=== PATIENT | female | born 1990 | race Caucasian/White ===

== ENCOUNTER 2020-11-10 20:14 | Inpatient (IN) | payer MEDICAID ==
[2020-11-10] MEDS ORDERED: Sodium Chloride 0.9% 10 ML Syringe FLUSH PRN (20:43)
[2020-11-10] MEDS ORDERED: Nalbuphine 10 MG/1 ML Vial IVPUSH PRN (20:43)
[2020-11-10] MEDS ORDERED: Butorphanol 1 MG/ML SDV IVPUSH PRN (20:43)
[2020-11-10] MEDS ORDERED: Lidocaine 1% 50 ML MDV INJECT PRN (20:43)
[2020-11-10] MEDS ORDERED: Sodium Chloride 0.9% 2.5 ML Syringe FLUSH PRN (20:43)
[2020-11-10] MEDS ORDERED: Water For Irrigation,Sterile 1,000 ML Container IRR PRN (20:43)
[2020-11-10] MEDS ORDERED: Misoprostol 200 MCG Tab PO PRN (20:43)
[2020-11-10] MEDS ORDERED: Methylergonovine 0.2 MG/1 ML Amp IM PRN (20:43)
[2020-11-10] MEDS ORDERED: Sodium Chloride 0.9% 10 ML SDV IV PRN (20:43)
[2020-11-10] MEDS ORDERED: Carboprost Tromethamine 250 MCG/1 ML Amp IM PRN (20:43)
[2020-11-10] MEDS ORDERED: Tranexamic Acid 1,000 MG in Sodium Chloride 0.9% 100 ML IV PRN (20:43)
[2020-11-10] MEDS ORDERED: Oxytocin/0.9 % Sodium Chloride 30 UNIT/500 ML BAG IV SCH (20:45)
[2020-11-11] MEDS ORDERED: Oxytocin/0.9 % Sodium Chloride 30 UNIT/500 ML BAG IV SCH (00:30)
[2020-11-11] MEDS: Lactated Ringers 1,000 ML IV SCH ×2 (00:42→04:30)
[2020-11-11] MEDS ORDERED: Ropivacaine HCl/PF 200 ML ONE (04:19)
[2020-11-11] MEDS ORDERED: Bupivacaine 0.25% 10 ML SDV ONE (04:19)
--- NOTE | 2020-11-11 04:49 | PCM.PREANE ---
Preanesthetic Assessment - Anesthesia/Transfusion/Family Hx Anesthesia History: Prior Anesthesia Without Reaction Family History of Anesthesia Reaction: No Transfusion History: No Prior Transfusion(s) - Review of Systems General: No Symptoms Pulmonary: No Symptoms Cardiovascular: No Symptoms Gastrointestinal: No Symptoms Neurological: No Symptoms Other: Reports: None - Physical Assessment NPO Status Date: 11/11/20 NPO Status Time: 00:00 Height: 5 ft 2 in Weight: 180 lb ASA Class: 2 Mental Status: Alert & Oriented x3 Airway Class: Mallampati = 2 Dentition: Reports: Normal Dentition ROM/Head Extension: Full Lungs: Clear to Auscultation, Normal Respiratory Effort Cardiovascular: Regular Rate, Regular Rhythm - Lab Values: Laboratory Last Values WBC 8.85 K/uL (4.0-11.0) 11/10/20 21:08 RBC 4.34 M/uL (4.30-5.90) 11/10/20 21:08 Hgb 12.1 g/dL (12.0-16.0) 11/10/20 21:08 Hct 36.5 % (36.0-46.0) 11/10/20 21:08 MCV 84.1 fL (80.0-98.0) 11/10/20 21:08 MCH 27.9 pg (27.0-32.0) 11/10/20 21:08 MCHC 33.2 g/dL (31.0-37.0) 11/10/20 21:08 RDW Std Deviation 58.1 fl (28.0-62.0) 11/10/20 21:08 RDW Coeff of Fortino 20 % (11.0-15.0) H 11/10/20 21:08 Plt Count 218 K/uL (150-400) 11/10/20 21:08 MPV 10.80 fL (7.40-12.00) 11/10/20 21:08 Urine Opiates Screen NEGATIVE (NEGATIVE) 11/10/20 21:00 Ur Oxycodone Screen NEGATIVE (NEGATIVE) 11/10/20 21:00 Urine Methadone Screen NEGATIVE (NEGATIVE) 11/10/20 21:00 Ur Barbiturates Screen NEGATIVE (NEGATIVE) 11/10/20 21:00 Ur Phencyclidine Scrn NEGATIVE (NEGATIVE) 11/10/20 21:00 Ur Amphetamine Screen NEGATIVE (NEGATIVE) 11/10/20 21:00 U Methamphetamines Scrn NEGATIVE (NEGATIVE) 11/10/20 21:00 U Benzodiazepines Scrn NEGATIVE (NEGATIVE) 11/10/20 21:00 U Cocaine Metab Screen NEGATIVE (NEGATIVE) 11/10/20 21:00 U Marijuana (THC) Screen NEGATIVE (NEGATIVE) 11/10/20 21:00 Hep Bs Antigen Index < 0.1 INDEX (<1.0) 11/10/20 21:08 Hep C Ab Index (SARAH) 0.02 INDEX (<0.8) 11/10/20 21:08 HIV 1&2 Ag/Ab, 4th Gen < 0.1 INDEX (<1.0) 11/10/20 21:08 Rubella IgG Ab Index 334.6 IU/mL 11/10/20 21:08 SARS-CoV-2 RNA (REFUGIO) POSITIVE (NEGATIVE) H 11/10/20 21:33 Blood Type O POSITIVE 11/10/20 21:08 Antibody Screen NEGATIVE 11/10/20 21:08 - Allergies Allergies/Adverse Reactions: Allergies Allergy/AdvReac Type Severity Reaction Status Date / Time naproxen [From Aleve] Allergy Severe Facial Verified 08/19/20 22:56 MDT Swelling - Blood Blood Available: Yes Product(s) Available: PRBC - Anesthesia Plan Pre-Op Medication Ordered: None - Acknowledgements Anesthesia Type Planned: Epidural Pt an Appropriate Candidate for the Planned Anesthesia: Yes Alternatives and Risks of Anesthesia Discussed w Pt/Guardian: Yes Pt/Guardian Understands and Agrees with Anesthesia Plan: Yes PreAnesthesia Questionnaire - Past Health History Medical/Surgical History: Denies Medical/Surgical History HEENT History: Reports: Impaired Vision Other HEENT History: wears contacts. Cardiovascular History: Reports: Other (See Below) Other Cardiovascular History: endocarditis. 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 - HOME MEDS Home Medications: Home Meds Pnv No.95/Ferrous Fum/Folic AC [ Caplet] 2 tab PO DAILY 08/18/20 [History] Acetaminophen [Tylenol] 650 mg PO Q6H tablet 08/20/20 [Rx] cephALEXin [Keflex] 500 mg PO QID #40 cap 08/20/20 [Rx] - CURRENT (IN HOUSE) MEDS Current Meds: Current Medications Butorphanol Tartrate (Butorphanol 1 Mg/Ml Sdv) 1 mg IVPUSH Q1H PRN PRN Reason: Pain (severe 7-10) Carboprost Tromethamine (Carboprost Tromethamine 250 Mcg/1 Ml Amp) 250 mcg IM ASDIRECTED PRN PRN Reason: Post Hemorrhage Oxytocin/Sodium Chloride (Oxytocin 30 Unit/500 Ml-Ns) 30 unit in 500 mls @ 999 mls/hr IV TITRATE JESIKA Tranexamic Acid 1,000 mg/ (Sodium Chloride) 110 mls @ 660 mls/hr IV ONETIME PRN PRN Reason: Bleeding Lactated Ringer's (Ringers, Lactated) 1,000 mls @ 150 mls/hr IV ASDIRECTED JESIKA Last Admin: 11/11/20 04:30 Dose: 150 mls/hr Documented by: Oxytocin/Sodium Chloride (Oxytocin 30 Unit/500 Ml-Ns) 30 unit in 500 mls @ 2 mls/hr IV TITRATE JESIKA; Protocol Last Infusion: 11/11/20 03:22 Dose: 12 munits/min, 12 mls/hr Documented by: Lidocaine HCl (Lidocaine 1% 50 Ml Mdv) 50 ml INJECT ONETIME PRN PRN Reason: Laceration repair Methylergonovine Maleate (Methylergonovine 0.2 Mg/1 Ml Amp) 0.2 mg IM ASDIRECTED PRN PRN Reason: Post Hemorrhage Misoprostol (Misoprostol 200 Mcg Tab) 200 mcg PO ONETIME PRN PRN Reason: Post Hemorrhage Nalbuphine HCl (Nalbuphine 10 Mg/1 Ml Vial) 10 mg IVPUSH Q1H PRN PRN Reason: Pain (severe 7-10) Sodium Chloride (Sodium Chloride 0.9% 10 Ml Syringe) 10 ml FLUSH ASDIRECTED PRN PRN Reason: Keep Vein Open Sodium Chloride (Sodium Chloride 0.9% 2.5 Ml Syringe) 2.5 ml FLUSH ASDIRECTED PRN PRN Reason: Keep Vein Open Sodium Chloride (Sodium Chloride 0.9% 10 Ml Sdv) 10 ml IV ASDIRECTED PRN PRN Reason: IV Use Sterile Water (Water For Irrigation,Sterile 1,000 Ml Container) 1,000 ml IRR ASDIRECTED PRN PRN Reason: delivery Discontinued Medications Bupivacaine HCl (Bupivacaine 0.25% 10 Ml Sdv) Confirm Administered Dose 10 ml .ROUTE .STK-MED ONE Stop: 11/11/20 04:20 Ropivacaine (Naropin 0.2%) Confirm Administered Dose 200 mls @ as directed .ROUTE .[employer] ONE Stop: 11/11/20 04:20 - Pre-Procedure Checklist Attending Provider Aware: Yes Chart Reviewed: Yes Consent Signed: Yes Labs Reviewed: Yes VS/FHR Reviewed: Yes Patient Identification Confirmation Method: Reports: Verbal Patient Pt an Appropriate Candidate for the Planned Anesthesia: Yes Alternatives and Risks of Anesthesia Discussed w Pt/Guardian: Yes - Procedure Procedure Start Date: 11/11/20 Procedure Start Time: 04:[address]: Reports: Blood Pressure, Heart Rate, SPO2 Functional IV: Yes Safety Measures: Reports: Patient Identified, Procedure Verified, Site Verified, Procedure Time Out Patient Position: Reports: Sitting Prep: Reports: Betadine x3 Local Anesthetic: Reports: Intradermal Wheal w Lidocaine 1% Regional Placement Level: Reports: L3-4 Needle: Reports: 17 g Touhy Approach: Reports: Midline Technique: Reports: NITA Plastic Syringe Parasthesia: Reports: None Fluid Obtained: Reports: None Test Dose Time: 04:29 Test Dose Medication: Reports: Lidocaine 1.5% w Epinephrine 1:200,000 Test Dose Response: Reports: Negative Loading Dose Time: 04:28 Loading Dose Medication: bupivicaine 0.25% 10cc Loading Dose Patient Position: sitting Continuous Infusion Start Time: 04:35 Continuous Infusion Medication: ropivicaine0.2% Continuous Infusion Rate: 16 Continuous Infusion PCS Bolus Option: 4 Continuous Infusion Lockout Dose (cc/hr): 32 Patient Position Post Placement: Reports: Supline/CHARLEE VS and FHR Monitored in Unit Post Placement: Yes Procedure End Date: 11/11/20 Procedure End Time: 05:21
--- NOTE | 2020-11-11 07:34 | PCM.PRNOTE ---
- Free Text/Narrative Note: Anes Note Patient reports numbness of both legs. Hand grasps are adequat. Epidural pump was reset from a rate of 16 cc hr to 12 cc hr. Time with patient [id number] Juan Manuel Ritter STEWARD/STEWARDESS
[2020-11-11] MEDS ORDERED: Benzocaine/Menthol 20%-0.5% Spray 78 GM Cannister TOP PRN (08:59)
[2020-11-11] MEDS ORDERED: Acetaminophen 500 MG Tab PO PRN (08:59)
[2020-11-11] MEDS ORDERED: Lanolin 100% Cream 7 GM Tube TOP PRN (08:59)
[2020-11-11] MEDS ORDERED: Docusate Sodium 100 MG Cap PO PRN (08:59)
[2020-11-11] MEDS ORDERED: Bisacodyl 10 MG Supp RECTAL PRN (08:59)
[2020-11-11] MEDS ORDERED: Witch Hazel Medicated Pads 40/Jar TOP PRN (08:59)
--- NOTE | 2020-11-11 12:29 | PCM.LDHP ---
L&D History of Present Illness - General Date of Service: 11/10/20 (LATE ENTRY) Admit Problem/Dx: Patient Status Order with Admit Dx/Problem 11/10/20 20:10 Patient Status [ADT] Routine 11/11/20 09:01 Patient Status [ADT] Routine Admission Diagnosis/Problem Admission Diagnosis/Problem Source of Information: Patient History Limitations: Reports: No Limitations - History of Present Illness Introduction:: 30yo @ 38w3d [place] presented with ROM. Patient reports ROM at 6pm (11/10/20), no blood. Contractions started shortly after. Upon arrival to L&D, nurse confirmed gross ruptured and reports SVE at 280/-2 Patient was seen in clinic only once, at ~8wGA, with confirmed heart tone. She states she has continued her care in a different town. - Related Data Allergies/Adverse Reactions: Allergies Allergy/AdvReac Type Severity Reaction Status Date / Time naproxen [From Aleve] Allergy Severe Facial Verified 08/19/20 22:56 MDT Swelling Home Medications: Home Meds Pnv No.95/Ferrous Fum/Folic AC [ Caplet] 2 tab PO DAILY 08/18/20 [History] Acetaminophen [Tylenol] 650 mg PO Q6H tablet 08/20/20 [Rx] cephALEXin [Keflex] 500 mg PO QID #40 cap 08/20/20 [Rx] Past Medical History - Past Health History Medical/Surgical History: Denies Medical/Surgical History HEENT History: Reports: Impaired Vision Other HEENT History: wears contacts. Cardiovascular History: Reports: Other (See Below) Other Cardiovascular History: endocarditis. Genitourinary History: Reports: Pyelonephritis, UTI, Recurrent NURSE CASE MANAGEMENT History: Reports: Musculoskeletal History: Reports: Fracture Psychiatric History: Reports: None Hematologic History: Reports: Anemia - Infectious Disease History Infectious Disease History: Reports: Chicken Pox - Past Surgical History Head Surgeries/Procedures: Reports: None Other Musculoskeletal Surgeries/Procedures:: finger--pins placed. Social & Family History - Family History Family Medical History: No Pertinent Family History - Caffeine Use Caffeine Use: Reports: None H&P Review of Systems - Review of Systems: Review Of Systems: See Below General: Reports: No Symptoms HEENT: Reports: No Symptoms Pulmonary: Reports: No Symptoms Cardiovascular: Reports: No Symptoms Gastrointestinal: Reports: No Symptoms Genitourinary: Reports: No Symptoms Musculoskeletal: Reports: No Symptoms Skin: Reports: No Symptoms Psychiatric: Reports: No Symptoms Neurological: Reports: No Symptoms Hematologic/Lymphatic: Reports: No Symptoms Immunologic: Reports: No Symptoms L&D Exam - Exam Exam: See Below - Vital Signs Vital Signs: Last Vital Signs Temp Pulse 62 11/11/20 08:46 Resp 16 11/11/20 08:46 BP 133/88 11/11/20 08:46 Pulse Ox Weight: 81.647 kg - OB Specific Contraction Intensity: Mild to Moderate Movement: Active Heart Tones: Present Presentation: Vertex Estimated Weight: 6-7lbs - Canseco Score Canseco Score Cervix Position: Midposition Canseco Score Consistency: Soft Canseco Score Effacement: >80% Canseco Score Dilation: 1-2 cm Canseco Score Infant's Station: -2 Canseco Score Total: 8 - Exam General: Alert, Oriented Lungs: Normal Respiratory Effort Cardiovascular: Regular Rate Extremities: Normal Inspection Psychiatric: Alert, Normal Affect, Normal Mood - Patient Data Lab Results Last 24 hrs: Laboratory Results - last 24 hr 11/10/20 11/10/20 11/10/20 Range/Units 21:00 21:08 21:08 WBC 8.85 (4.0-11.0) K/uL RBC 4.34 (4.30-5.90) M/uL Hgb 12.1 (12.0-16.0) g/dL Hct 36.5 (36.0-46.0) % MCV 84.1 (80.0-98.0) fL MCH 27.9 (27.0-32.0) pg MCHC 33.2 (31.0-37.0) g/dL RDW Std Deviation 58.1 (28.0-62.0) fl RDW Coeff of Fortino 20 H (11.0-15.0) % Plt Count 218 (150-400) K/uL MPV 10.80 (7.40-12.00) fL Urine Opiates Screen NEGATIVE (NEGATIVE) Ur Oxycodone Screen NEGATIVE (NEGATIVE) Urine Methadone Screen NEGATIVE (NEGATIVE) Ur Barbiturates Screen NEGATIVE (NEGATIVE) Ur Phencyclidine Scrn NEGATIVE (NEGATIVE) Ur Amphetamine Screen NEGATIVE (NEGATIVE) U Methamphetamines Scrn NEGATIVE (NEGATIVE) U Benzodiazepines Scrn NEGATIVE (NEGATIVE) U Cocaine Metab Screen NEGATIVE (NEGATIVE) U Marijuana (THC) Screen NEGATIVE (NEGATIVE) Hep Bs Antigen Index < 0.1 (<1.0) INDEX Hep C Ab Index (SARAH) 0.02 (<0.8) INDEX HIV 1&2 Ag/Ab, 4th Gen < 0.1 (<1.0) INDEX Rubella IgG Ab Index 334.6 IU/mL SARS-CoV-2 RNA (REFUGIO) (NEGATIVE) Blood Type Antibody Screen 11/10/20 11/10/20 Range/Units 21:08 21:33 WBC (4.0-11.0) K/uL RBC (4.30-5.90) M/uL Hgb (12.0-16.0) g/dL Hct (36.0-46.0) % MCV (80.0-98.0) fL MCH (27.0-32.0) pg MCHC (31.0-37.0) g/dL RDW Std Deviation (28.0-62.0) fl RDW Coeff of Fortino (11.0-15.0) % Plt Count (150-400) K/uL MPV (7.40-12.00) fL Urine Opiates Screen (NEGATIVE) Ur Oxycodone Screen (NEGATIVE) Urine Methadone Screen (NEGATIVE) Ur Barbiturates Screen (NEGATIVE) Ur Phencyclidine Scrn (NEGATIVE) Ur Amphetamine Screen (NEGATIVE) U Methamphetamines Scrn (NEGATIVE) U Benzodiazepines Scrn (NEGATIVE) U Cocaine Metab Screen (NEGATIVE) U Marijuana (THC) Screen (NEGATIVE) Hep Bs Antigen Index (<1.0) INDEX Hep C Ab Index (SARAH) (<0.8) INDEX HIV 1&2 Ag/Ab, 4th Gen (<1.0) INDEX Rubella IgG Ab Index IU/mL SARS-CoV-2 RNA (REFUGIO) POSITIVE H (NEGATIVE) Blood Type O POSITIVE Antibody Screen NEGATIVE Result Diagrams: 11/10/20 21:08 - Problem List (1) Term delivered SNOMED Code(s): 88795321, 781743328 ICD Code: O80 - ENCOUNTER FOR FULL-TERM UNCOMPLICATED DELIVERY Status: Acute Current Visit: Yes Problem List Initiated/Reviewed/Updated: Yes Orders Last 24hrs: Active Orders 24 hr Category Date Time Status Patient Status [ADT] Routine ADT 11/11/20 09:01 Active Heart Tones [RC] CONTINUOUS Care 11/10/20 20:44 Active May Shower [RC] ASDIRECTED Care 11/10/20 20:44 Active May Shower [RC] ASDIRECTED Care 11/11/20 09:01 Active Notify Provider [RC] PRN Care 11/10/20 20:44 Active Up ad Opal [RC] ASDIRECTED Care 11/10/20 20:44 Active Up ad Opal [RC] ASDIRECTED Care 11/11/20 09:01 Active Vaginal Exam [RC] PRN Care 11/10/20 20:44 Active Vital Signs [RC] PER UNIT ROUTINE Care 11/10/20 20:44 Active Vital Signs [RC] PER UNIT ROUTINE Care 11/11/20 09:01 Active CHLAMYDIA AND GONORRHEA BY TMA Routine Lab 11/10/20 21:00 Received GROUP B STREP BY PCR [MOLEC] Routine Lab 11/10/20 20:44 Ordered HEMOGLOBIN/HEMATOCRIT,HH [HEME] Timed Lab 11/12/20 05:11 Ordered RPR (SYPHILIS SERO) W/ RFLX [REF] Routine Lab 11/10/20 21:08 Received UA RFX EARL AND CULT IF INDIC [URIN] Routine Lab 11/10/20 20:44 Ordered Acetaminophen [Tylenol Extra Strength] Med 11/11/20 08:59 Active 1,000 mg PO Q4H PRN Acetaminophen [Tylenol Extra Strength] Med 11/11/20 08:59 Active 500 mg PO Q4H PRN Benzocaine/Menthol [Dermoplast Pain Relief 20%-0.5% Med 11/11/20 08:59 Active [place]] 78 gm TOP ASDIRECTED PRN Butorphanol [Stadol] Med 11/10/20 20:43 Active 1 mg IVPUSH Q1H PRN Carboprost Tromethamine [Hemabate DS] Med 11/10/20 20:43 Active 250 mcg IM ASDIRECTED PRN Docusate Sodium [Colace] Med 11/11/20 08:59 Active 100 mg PO Q12H PRN Lactated Ringers [Ringers, Lactated] 1,000 ml Med 11/10/20 20:45 Active IV ASDIRECTED Lanolin [Lansinoh HPA] Med 11/11/20 08:59 Active See Dose Instructions TOP ASDIRECTED PRN Lidocaine 1% [Xylocaine 1%] Med 11/10/20 20:43 Active 50 ml INJECT ONETIME PRN Methylergonovine [Methergine] Med 11/10/20 20:43 Active 0.2 mg IM ASDIRECTED PRN Nalbuphine [Nubain] Med 11/10/20 20:43 Active 10 mg IVPUSH Q1H PRN Oxytocin/0.9 % Sodium Chloride [Oxytocin 30 Unit/500 ML Med 11/10/20 20:45 Active -NS] 30 unit in 500 ml IV TITRATE Oxytocin/0.9 % Sodium Chloride [Oxytocin 30 Unit/500 ML Med 11/11/20 00:30 Active -NS] 30 unit in 500 ml IV TITRATE Sodium Chloride 0.9% [Normal Saline] Med 11/10/20 20:43 Active 10 ml IV ASDIRECTED PRN Sodium Chloride 0.9% [Saline Flush] [facility] 11/10/20 20:43 Active 10 ml FLUSH ASDIRECTED PRN Sodium Chloride 0.9% [Saline Flush] [facility] 11/10/20 20:43 Active 2.5 ml FLUSH ASDIRECTED PRN Tranexamic Acid [Cyklokapron] 1,000 mg Med 11/10/20 20:43 Active Sodium Chloride 0.9% [Normal Saline] 100 ml IV ONETIME Water For Irrigation,Sterile [Sterile Water for Med 11/10/20 20:43 Active Irrigation] 1,000 ml IRR ASDIRECTED PRN bisacodyL [Dulcolax] Med 11/11/20 08:59 Active 10 mg RECTAL ONETIME PRN miSOPROStoL [Cytotec] Med 11/10/20 20:43 Active 200 mcg PO ONETIME PRN witch Latosha [Tucks] Med 11/11/20 08:59 Active 1 pad TOP ASDIRECTED PRN Assess Lochia [WOMSER] Per Unit Routine Ot 11/11/20 09:01 Ordered Assess Uterine Involution [WOMSER] Per Unit Routine Ot 11/11/20 09:01 Ordered Scalp Electrode [WOMSER] Per Unit Routine Ot 11/10/20 20:44 Ordered Peripheral IV Discontinue [OM.PC] Routine Ot 11/11/20 09:01 Ordered Peripheral IV Insertion Adult [OM.PC] Routine Ot 11/10/20 20:44 Ordered Resuscitation Status Routine Resus Stat 11/10/20 20:43 Ordered Medication Orders Acetaminophen (Acetaminophen 500 Mg Tab) 500 mg PO Q4H PRN PRN Reason: Pain (mild 1-3) Acetaminophen (Acetaminophen 500 Mg Tab) 1,000 mg PO Q4H PRN PRN Reason: Pain (mild 1-3) Benzocaine/Menthol (Benzocaine/Menthol 20%-0.5% [place] 78 Gm Cannister) 78 gm TOP ASDIRECTED PRN PRN Reason: Perineal Comfort Measure Last Admin: 11/11/20 10:30 Dose: 1 canister Documented by: GENEVIEVE Bisacodyl (Bisacodyl 10 Mg Supp) 10 mg RECTAL ONETIME PRN PRN Reason: Constipation Butorphanol Tartrate (Butorphanol 1 Mg/Ml Sdv) 1 mg IVPUSH Q1H PRN PRN Reason: Pain (severe 7-10) Carboprost Tromethamine (Carboprost Tromethamine 250 Mcg/1 Ml Amp) 250 mcg IM ASDIRECTED PRN PRN Reason: Post Hemorrhage Docusate Sodium (Docusate Sodium 100 Mg Cap) 100 mg PO Q12H PRN PRN Reason: Constipation Emollient Ointment (Lanolin 100% Cream 7 Gm Tube) 0 gm TOP ASDIRECTED PRN PRN Reason: Sore Nipples Last Admin: 11/11/20 10:30 Dose: 1 tube Documented by: GENEVIEVE Oxytocin/Sodium Chloride (Oxytocin 30 Unit/500 Ml-Ns) 30 unit in 500 mls @ 999 mls/hr IV TITRATE [facility] Tranexamic Acid 1,000 mg/ (Sodium Chloride) 110 mls @ 660 mls/hr IV ONETIME PRN PRN Reason: Bleeding Lactated Ringer's (Ringers, Lactated) 1,000 mls @ 150 mls/hr IV ASDIRECTED JESIKA Last Admin: 11/11/20 04:30 Dose: 150 mls/hr Documented by: Infusion: 11/11/20 04:30 Dose: 150 mls/hr Documented by: Admin: 11/11/20 00:42 Dose: 150 mls/hr Documented by: WILY Oxytocin/Sodium Chloride (Oxytocin 30 Unit/500 Ml-Ns) 30 unit in 500 mls @ 2 mls/hr IV TITRATE [facility]; Protocol Last Infusion: 11/11/20 03:22 Dose: 12 munits/min, 12 mls/hr Documented by: Infusion: 11/11/20 02:50 Dose: 10 munits/min, 10 mls/hr Documented by: Infusion: 11/11/20 02:20 Dose: 8 munits/min, 8 mls/hr Documented by: Infusion: 11/11/20 01:50 Dose: 6 munits/min, 6 mls/hr Documented by: Infusion: 11/11/20 01:20 Dose: 4 munits/min, 4 mls/hr Documented by: Admin: 11/11/20 00:43 Dose: 2 munits/min, 2 mls/hr Documented by: WILY Lidocaine HCl (Lidocaine 1% 50 Ml Mdv) 50 ml INJECT ONETIME PRN PRN Reason: Laceration repair Methylergonovine Maleate (Methylergonovine 0.2 Mg/1 Ml Amp) 0.2 mg IM ASDIRECTE D PRN PRN Reason: Post Hemorrhage Misoprostol (Misoprostol 200 Mcg Tab) 200 mcg PO ONETIME PRN PRN Reason: Post Hemorrhage Nalbuphine HCl (Nalbuphine 10 Mg/1 Ml Vial) 10 mg IVPUSH Q1H PRN PRN Reason: Pain (severe 7-10) Sodium Chloride (Sodium Chloride 0.9% 10 Ml Syringe) 10 ml FLUSH ASDIRECTED PRN PRN Reason: Keep Vein Open Sodium Chloride (Sodium Chloride 0.9% 2.5 Ml Syringe) 2.5 ml FLUSH ASDIRECTED PRN PRN Reason: Keep Vein Open Sodium Chloride (Sodium Chloride 0.9% 10 Ml Sdv) 10 ml IV ASDIRECTED PRN PRN Reason: IV Use Sterile Water (Water For Irrigation,Sterile 1,000 Ml Container) 1,000 ml IRR ASDIRECTED PRN PRN Reason: delivery Witch Latosha (Witch Latosha Medicated Pads 40/Jar) 1 pad TOP ASDIRECTED PRN PRN Reason: comfort care Last Admin: 11/11/20 10:29 Dose: 1 tub Documented by: GENEVIEVE Assessment/Plan Comment:: 30yo @ 38w3d [place] admitted for SROM in early labor. Only 1 care visit at our clinic at 8wGA. Cat1 tracing, canseco score of 8 Expectant management lab ordered, including UDS. Epidural PRN
--- NOTE | 2020-11-11 12:41 | PCM.DEL ---
L & D Note - General Info Date of Service: 11/11/20 Mother's Due Date: 11/21/20 - Delivery Note Labor: Spontaneous Cervical Ripening Method: Oxytocin Delivery Outcome: Livebirth Delivery Method: Spontaneous Vaginal Delivery-Single Infant Delivery Mode: Spontaneous Presentation: Vertex Nuchal Cord: None Anesthesia Type: Epidural Episiotomy Type: None Laceration: None Placenta: Intact, Spontaneous Estimated Blood Loss: 150 Resuscitation Needed: No : Stimulated Score 1 min: 8 Score 5 min: 9 Delivery Comments (Free Text/Narrative):: 30yo G5 now P4014 s/p @ 38w4d GA after she was admitted for SROM in early labor. Inadequate care, only 1 visit at our clinic at 8wGA. Normal spontaneous vaginal delivery, of live male infant, over an intact perineum with epidural anesthesia. No meconium or nuchal cord present. Spontaneous delivery of placenta with 3-vessel cord. No lacerations noted. All sponges and instrument counts correct Delivery details: Male Weight: 6'5" : 8/9 EBL 150cc - General Info Date of Service: 11/11/20 Admission Dx/Problem (Free Text): Patient Status Order with Admit Dx/Problem 11/10/20 20:10 Patient Status [ADT] Routine 11/11/20 09:01 Patient Status [ADT] Routine Admission Diagnosis/Problem Admission Diagnosis/Problem Subjective Update: Mom and baby are both doing well. Functional Status: Reports: Pain Controlled - Review of Systems General: Reports: No Symptoms HEENT: Reports: No Symptoms Pulmonary: Reports: No Symptoms Cardiovascular: Reports: No Symptoms Gastrointestinal: Reports: No Symptoms Genitourinary: Reports: No Symptoms Musculoskeletal: Reports: No Symptoms Skin: Reports: No Symptoms Neurological: Reports: No Symptoms Psychiatric: Reports: No Symptoms - Patient Data Vitals - Most Recent: Last Vital Signs Temp Pulse 62 11/11/20 08:46 Resp 16 11/11/20 08:46 BP 133/88 11/11/20 08:46 Pulse Ox Weight - Most Recent: 81.647 kg Lab Results Last 24 Hours: Laboratory Results - last 24 hr 11/10/20 11/10/20 11/10/20 Range/Units 21:00 21:08 21:08 WBC 8.85 (4.0-11.0) K/uL RBC 4.34 (4.30-5.90) M/uL Hgb 12.1 (12.0-16.0) g/dL Hct 36.5 (36.0-46.0) % MCV 84.1 (80.0-98.0) fL MCH 27.9 (27.0-32.0) pg MCHC 33.2 (31.0-37.0) g/dL RDW Std Deviation 58.1 (28.0-62.0) fl RDW Coeff of Fortino 20 H (11.0-15.0) % Plt Count 218 (150-400) K/uL MPV 10.80 (7.40-12.00) fL Urine Opiates Screen NEGATIVE (NEGATIVE) Ur Oxycodone Screen NEGATIVE (NEGATIVE) Urine Methadone Screen NEGATIVE (NEGATIVE) Ur Barbiturates Screen NEGATIVE (NEGATIVE) Ur Phencyclidine Scrn NEGATIVE (NEGATIVE) Ur Amphetamine Screen NEGATIVE (NEGATIVE) U Methamphetamines Scrn NEGATIVE (NEGATIVE) U Benzodiazepines Scrn NEGATIVE (NEGATIVE) U Cocaine Metab Screen NEGATIVE (NEGATIVE) U Marijuana (THC) Screen NEGATIVE (NEGATIVE) Hep Bs Antigen Index < 0.1 (<1.0) INDEX Hep C Ab Index (SARAH) 0.02 (<0.8) INDEX HIV 1&2 Ag/Ab, 4th Gen < 0.1 (<1.0) INDEX Rubella IgG Ab Index 334.6 IU/mL SARS-CoV-2 RNA (REFUGIO) (NEGATIVE) Blood Type Antibody Screen 11/10/20 11/10/20 Range/Units 21:08 21:33 WBC (4.0-11.0) K/uL RBC (4.30-5.90) M/uL Hgb (12.0-16.0) g/dL Hct (36.0-46.0) % MCV (80.0-98.0) fL MCH (27.0-32.0) pg MCHC (31.0-37.0) g/dL RDW Std Deviation (28.0-62.0) fl RDW Coeff of Fortino (11.0-15.0) % Plt Count (150-400) K/uL MPV (7.40-12.00) fL Urine Opiates Screen (NEGATIVE) Ur Oxycodone Screen (NEGATIVE) Urine Methadone Screen (NEGATIVE) Ur Barbiturates Screen (NEGATIVE) Ur Phencyclidine Scrn (NEGATIVE) Ur Amphetamine Screen (NEGATIVE) U Methamphetamines Scrn (NEGATIVE) U Benzodiazepines Scrn (NEGATIVE) U Cocaine Metab Screen (NEGATIVE) U Marijuana (THC) Screen (NEGATIVE) Hep Bs Antigen Index (<1.0) INDEX Hep C Ab Index (SARAH) (<0.8) INDEX HIV 1&2 Ag/Ab, 4th Gen (<1.0) INDEX Rubella IgG Ab Index IU/mL SARS-CoV-2 RNA (REFUGIO) POSITIVE H (NEGATIVE) Blood Type O POSITIVE Antibody Screen NEGATIVE Med Orders - Current: Current Medications Acetaminophen (Acetaminophen 500 Mg Tab) 500 mg PO Q4H PRN PRN Reason: Pain (mild 1-3) Acetaminophen (Acetaminophen 500 Mg Tab) 1,000 mg PO Q4H PRN PRN Reason: Pain (mild 1-3) Benzocaine/Menthol (Benzocaine/Menthol 20%-0.5% [place] 78 Gm Cannister) 78 gm TOP ASDIRECTED PRN PRN Reason: Perineal Comfort Measure Last Admin: 11/11/20 10:30 Dose: 1 canister Documented by: Bisacodyl (Bisacodyl 10 Mg Supp) 10 mg RECTAL ONETIME PRN PRN Reason: Constipation Butorphanol Tartrate (Butorphanol 1 Mg/Ml Sdv) 1 mg IVPUSH Q1H PRN PRN Reason: Pain (severe 7-10) Carboprost Tromethamine (Carboprost Tromethamine 250 Mcg/1 Ml Amp) 250 mcg IM ASDIRECTED PRN PRN Reason: Post Hemorrhage Docusate Sodium (Docusate Sodium 100 Mg Cap) 100 mg PO Q12H PRN PRN Reason: Constipation Emollient Ointment (Lanolin 100% Cream 7 Gm Tube) 0 gm TOP ASDIRECTED PRN PRN Reason: Sore Nipples Last Admin: 11/11/20 10:30 Dose: 1 tube Documented by: Oxytocin/Sodium Chloride (Oxytocin 30 Unit/500 Ml-Ns) 30 unit in 500 mls @ 999 mls/hr IV TITRATE JESIKA Tranexamic Acid 1,000 mg/ (Sodium Chloride) 110 mls @ 660 mls/hr IV ONETIME PRN PRN Reason: Bleeding Lactated Ringer's (Ringers, Lactated) 1,000 mls @ 150 mls/hr IV ASDIRECTED JESIKA Last Admin: 11/11/20 04:30 Dose: 150 mls/hr Documented by: Oxytocin/Sodium Chloride (Oxytocin 30 Unit/500 Ml-Ns) 30 unit in 500 mls @ 2 mls/hr IV TITRATE JESIKA; Protocol Last Infusion: 11/11/20 03:22 Dose: 12 munits/min, 12 mls/hr Documented by: Lidocaine HCl (Lidocaine 1% 50 Ml Mdv) 50 ml INJECT ONETIME PRN PRN Reason: Laceration repair Methylergonovine Maleate (Methylergonovine 0.2 Mg/1 Ml Amp) 0.2 mg IM ASDIRECTED PRN PRN Reason: Post Hemorrhage Misoprostol (Misoprostol 200 Mcg Tab) 200 mcg PO ONETIME PRN PRN Reason: Post Hemorrhage Nalbuphine HCl (Nalbuphine 10 Mg/1 Ml Vial) 10 mg IVPUSH Q1H PRN PRN Reason: Pain (severe 7-10) Sodium Chloride (Sodium Chloride 0.9% 10 Ml Syringe) 10 ml FLUSH ASDIRECTED PRN PRN Reason: Keep Vein Open Sodium Chloride (Sodium Chloride 0.9% 2.5 Ml Syringe) 2.5 ml FLUSH ASDIRECTED PRN PRN Reason: Keep Vein Open Sodium Chloride (Sodium Chloride 0.9% 10 Ml Sdv) 10 ml IV ASDIRECTED PRN PRN Reason: IV Use Sterile Water (Water For Irrigation,Sterile 1,000 Ml Container) 1,000 ml IRR ASDIRECTED PRN PRN Reason: delivery Witch Latosha (Witch Latosha Medicated Pads 40/Jar) 1 pad TOP ASDIRECTED PRN PRN Reason: comfort care Last Admin: 11/11/20 10:29 Dose: 1 tub Documented by: Discontinued Medications Bupivacaine HCl (Bupivacaine 0.25% 10 Ml Sdv) Confirm Administered Dose 10 ml .ROUTE .STK-MED ONE Stop: 11/11/20 04:20 Ropivacaine (Naropin 0.2%) Confirm Administered Dose 200 mls @ as directed .ROUTE .STK-MED ONE Stop: 11/11/20 04:20 - Exam Urinary Catheter Total Time: 0Days 0Hours General: Alert, Oriented Lungs: Normal Respiratory Effort Back Exam: Normal Inspection Psy/Mental Status: Alert, Normal Affect, Normal Mood - Problem List & Annotations (1) Term delivered SNOMED Code(s): 33422993, 019935026 Code(s): O80 - ENCOUNTER FOR FULL-TERM UNCOMPLICATED DELIVERY Status: Acute Priority: High Current Visit: Yes - Problem List Review Problem List Initiated/Reviewed/Updated: Yes - My Orders Last 24 Hours: My Active Orders 11/10/20 20:43 Butorphanol [Stadol] 1 mg IVPUSH Q1H PRN Carboprost Tromethamine [Hemabate DS] 250 mcg IM ASDIRECTED PRN Lidocaine 1% [Xylocaine 1%] 50 ml INJECT ONETIME PRN Methylergonovine [Methergine] 0.2 mg IM ASDIRECTED PRN Nalbuphine [Nubain] 10 mg IVPUSH Q1H PRN Sodium Chloride 0.9% [Normal Saline] 10 ml IV ASDIRECTED PRN Sodium Chloride 0.9% [Saline Flush] 10 ml FLUSH ASDIRECTED PRN Sodium Chloride 0.9% [Saline Flush] 2.5 ml FLUSH ASDIRECTED PRN Tranexamic Acid [Cyklokapron] 1,000 mg Sodium Chloride 0.9% [Normal Saline] 100 ml IV ONETIME Water For Irrigation,Sterile [Sterile Water for Irrigation] 1,000 ml IRR ASDIRECTED PRN miSOPROStoL [Cytotec] 200 mcg PO ONETIME PRN Resuscitation Status Routine 11/10/20 20:44 Heart Tones [RC] CONTINUOUS May Shower [RC] ASDIRECTED Notify Provider [RC] PRN Up ad Opal [RC] ASDIRECTED Vaginal Exam [RC] PRN Vital Signs [RC] PER UNIT ROUTINE GROUP B STREP BY PCR [MOLEC] Routine UA RFX EARL AND CULT IF INDIC [URIN] Routine Scalp Electrode [WOMSER] Per Unit Routine Peripheral IV Insertion Adult [OM.PC] Routine 11/10/20 20:45 Lactated Ringers [Ringers, Lactated] 1,000 ml IV ASDIRECTED Oxytocin/0.9 % Sodium Chloride [Oxytocin 30 Unit/500 ML-NS] 30 unit in 500 ml IV TITRATE 11/10/20 21:00 CHLAMYDIA AND GONORRHEA BY TMA Routine 11/10/20 21:08 RPR (SYPHILIS SERO) W/ RFLX [REF] Routine 11/11/20 00:30 Oxytocin/0.9 % Sodium Chloride [Oxytocin 30 Unit/500 ML-NS] 30 unit in 500 ml IV TITRATE 11/11/20 08:59 Acetaminophen [Tylenol Extra Strength] 1,000 mg PO Q4H PRN Acetaminophen [Tylenol Extra Strength] 500 mg PO Q4H PRN Benzocaine/Menthol [Dermoplast Pain Relief 20%-0.5% [place]] 78 gm TOP ASDIRECTED PRN Docusate Sodium [Colace] 100 mg PO Q12H PRN Lanolin [Lansinoh HPA] See Dose Instructions TOP ASDIRECTED PRN bisacodyL [Dulcolax] 10 mg RECTAL ONETIME PRN witch Latosha [Tucks] 1 pad TOP ASDIRECTED PRN 11/11/20 09:01 Patient Status [ADT] Routine May Shower [RC] ASDIRECTED Up ad Opal [RC] ASDIRECTED Vital Signs [RC] PER UNIT ROUTINE Assess Lochia [WOMSER] Per Unit Routine Assess Uterine Involution [WOMSER] Per Unit Routine Peripheral IV Discontinue [OM.PC] Routine 11/12/20 05:11 HEMOGLOBIN/HEMATOCRIT,HH [HEME] Timed - Plan Plan:: 30yo G5 now P4014 s/p @ 38w4d GA after she was admitted for SROM in early labor. Inadequate care, only 1 visit at our clinic at 8wGA. Patient found to be covid pos, asymptomatic. Mom and baby are both doing well. Routine care Covid isolation and precautions per Unit routine
--- NOTE | 2020-11-11 12:52 | PCM48HPAN ---
Post Anesthesia Note - EVALUATION WITHIN 48HRS OF ANESTHETIC Vital Signs in Normal Range: Yes Patient Participated in Evaluation: Yes Respiratory Function Stable: Yes Airway Patent: Yes Cardiovascular Function Stable: Yes Hydration Status Stable: Yes Pain Control Satisfactory: Yes Nausea and Vomiting Control Satisfactory: Yes Mental Status Recovered: Yes Vital Signs: Last Vital Signs Temp Pulse 62 11/11/20 08:46 Resp 16 11/11/20 08:46 BP 133/88 11/11/20 08:46 Pulse Ox
--- NOTE | 2020-11-11 12:52 | PCM.POSTAN ---
POST ANESTHESIA ASSESSMENT - MENTAL STATUS Mental Status: Alert, Oriented - VITAL SIGNS Vital Signs: Last Vital Signs Temp Pulse 62 11/11/20 08:46 Resp 16 11/11/20 08:46 BP 133/88 11/11/20 08:46 Pulse Ox - RESPIRATORY Respiratory Status: Respiratory Rate WNL, Airway Patent, O2 Saturation Stable - CARDIOVASCULAR CV Status: Pulse Rate WNL, Blood Pressure Stable - GASTROINTESTINAL GI Status: No Symptoms - POST OP HYDRATION Hydration Status: Adequate & Stable
[2020-11-11] MEDS: Acetaminophen 500 MG Tab PO PRN ×3 (14:04→22:33)
[2020-11-11] MEDS ORDERED: Labetalol 100 MG Tab PO ONE (16:57)
[2020-11-11] MEDS: Labetalol 100 MG Tab PO SCH (21:14)
[2020-11-12] MEDS: Acetaminophen 500 MG Tab PO PRN ×4 (03:55→18:10)
--- NOTE | 2020-11-12 08:49 | PCM.PNPP ---
- General Info Date of Service: 11/12/20 Admission Dx/Problem (Free Text): Patient Status Order with Admit Dx/Problem 11/10/20 20:10 Patient Status [ADT] Routine 11/11/20 09:01 Patient Status [ADT] Routine Admission Diagnosis/Problem Admission Diagnosis/Problem Subjective Update: Maryjo is a 30 yo current PPD1 S/P uncomplicated to term NBM at 38+3 weeks gestation. O pos, RI, GBS unknown. course unknown, no care on record since 8 wk IOB, reports she received care elsewhere. MR release to be signed by patient today to receive records from outside facility. Patient has no complaints or concerns at this time. Patient is bottle feeding well, resting comfortably in bed with in bassinet with RN assessing. Patient reports she is eating, voiding, ambulating independently and without difficulty. Patient denies any problems or concerns at this time except mild- moderate intermittent uterine cramping relieved with Tylenol. Patient reports moderate vaginal bleeding with no clots. Functional Status: Reports: Pain Controlled, Tolerating Diet, Ambulating, Urinating - Review of Systems General: Reports: No Symptoms HEENT: Reports: No Symptoms Pulmonary: Reports: No Symptoms Cardiovascular: Reports: No Symptoms Gastrointestinal: Reports: No Symptoms Genitourinary: Reports: No Symptoms Musculoskeletal: Reports: No Symptoms Skin: Reports: No Symptoms Neurological: Reports: No Symptoms Psychiatric: Reports: No Symptoms - General Info Date of Service: 11/12/20 - Patient Data Vital Signs - Most Recent: Last Vital Signs Temp 97.1 F 11/12/20 03:55 Pulse 60 11/12/20 03:55 Resp 15 11/12/20 03:55 BP 124/77 11/12/20 03:55 Pulse Ox 98 11/12/20 03:55 Weight - Most Recent: 180 lb Lab Results - Last 24 Hours: Laboratory Results - last 24 hr 11/12/20 Range/Units 05:05 Hgb 10.6 L (12.0-16.0) g/dL Hct 32.6 L (36.0-46.0) % Med Orders - Current: Current Medications Acetaminophen (Acetaminophen 500 Mg Tab) 500 mg PO Q4H PRN PRN Reason: Pain (mild 1-3) Acetaminophen (Acetaminophen 500 Mg Tab) 1,000 mg PO Q4H PRN PRN Reason: Pain (mild 1-3) Last Admin: 11/12/20 03:55 Dose: 1,000 mg Documented by: Benzocaine/Menthol (Benzocaine/Menthol 20%-0.5% [place] 78 Gm Cannister) 78 gm TOP ASDIRECTED PRN PRN Reason: Perineal Comfort Measure Last Admin: 11/11/20 10:30 Dose: 1 canister Documented by: Bisacodyl (Bisacodyl 10 Mg Supp) 10 mg RECTAL ONETIME PRN PRN Reason: Constipation Butorphanol Tartrate (Butorphanol 1 Mg/Ml Sdv) 1 mg IVPUSH Q1H PRN PRN Reason: Pain (severe 7-10) Carboprost Tromethamine (Carboprost Tromethamine 250 Mcg/1 Ml Amp) 250 mcg IM ASDIRECTED PRN PRN Reason: Post Hemorrhage Docusate Sodium (Docusate Sodium 100 Mg Cap) 100 mg PO Q12H PRN PRN Reason: Constipation Emollient Ointment (Lanolin 100% Cream 7 Gm Tube) 0 gm TOP ASDIRECTED PRN PRN Reason: Sore Nipples Last Admin: 11/11/20 10:30 Dose: 1 tube Documented by: Oxytocin/Sodium Chloride (Oxytocin 30 Unit/500 Ml-Ns) 30 unit in 500 mls @ 999 mls/hr IV TITRATE JESIKA Tranexamic Acid 1,000 mg/ (Sodium Chloride) 110 mls @ 660 mls/hr IV ONETIME PRN PRN Reason: Bleeding Lactated Ringer's (Ringers, Lactated) 1,000 mls @ 150 mls/hr IV ASDIRECTED JESIKA Last Admin: 11/11/20 04:30 Dose: 150 mls/hr Documented by: Oxytocin/Sodium Chloride (Oxytocin 30 Unit/500 Ml-Ns) 30 unit in 500 mls @ 2 mls/hr IV TITRATE JESIKA; Protocol Last Infusion: 11/11/20 03:22 Dose: 12 munits/min, 12 mls/hr Documented by: Labetalol HCl (Labetalol 100 Mg Tab) 200 mg PO BID JESIKA Last Admin: 11/11/20 21:14 Dose: Not Given Documented by: Lidocaine HCl (Lidocaine 1% 50 Ml Mdv) 50 ml INJECT ONETIME PRN PRN Reason: Laceration repair Methylergonovine Maleate (Methylergonovine 0.2 Mg/1 Ml Amp) 0.2 mg IM ASDIRECTED PRN PRN Reason: Post Hemorrhage Misoprostol (Misoprostol 200 Mcg Tab) 200 mcg PO ONETIME PRN PRN Reason: Post Hemorrhage Nalbuphine HCl (Nalbuphine 10 Mg/1 Ml Vial) 10 mg IVPUSH Q1H PRN PRN Reason: Pain (severe 7-10) Sodium Chloride (Sodium Chloride 0.9% 10 Ml Syringe) 10 ml FLUSH ASDIRECTED PRN PRN Reason: Keep Vein Open Sodium Chloride (Sodium Chloride 0.9% 2.5 Ml Syringe) 2.5 ml FLUSH ASDIRECTED PRN PRN Reason: Keep Vein Open Sodium Chloride (Sodium Chloride 0.9% 10 Ml Sdv) 10 ml IV ASDIRECTED PRN PRN Reason: IV Use Sterile Water (Water For Irrigation,Sterile 1,000 Ml Container) 1,000 ml IRR ASDIRECTED PRN PRN Reason: delivery Witch Latosha (Witch Latosha Medicated Pads 40/Jar) 1 pad TOP ASDIRECTED PRN PRN Reason: comfort care Last Admin: 11/11/20 10:29 Dose: 1 tub Documented by: Discontinued Medications Bupivacaine HCl (Bupivacaine 0.25% 10 Ml Sdv) Confirm Administered Dose 10 ml .ROUTE .STK-MED ONE Stop: 11/11/20 04:20 Last Admin: 11/12/20 07:15 Dose: Not Given Documented by: Ropivacaine (Naropin 0.2%) Confirm Administered Dose 200 mls @ as directed .ROUTE .STK-MED ONE Stop: 11/11/20 04:20 Last Admin: 11/12/20 07:15 Dose: Not Given Documented by: Labetalol HCl (Labetalol 100 Mg Tab) 200 mg PO ONETIME ONE Stop: 11/11/20 16:58 Last Admin: 11/11/20 17:20 Dose: 200 mg Documented by: - Infant Interaction Infant Disposition, : at Bedside Infant Interaction: Not Interacting Feeding: Bottle Fed Support Person: Significant Other - Recovery Exam Fundal Tone: Firm Fundal Level: 2 Fingerbreadths Above Umbilicus Fundal Placement: Midline Lochia Amount: Small, Moderate Lochia Color: Rubra/Red Perineum Description: Intact, Minimal Bruising/Swelling Episiotomy/Laceration: None Bladder Status: Voiding Urinary Elimination: Voided - Exam General: Alert, Oriented, Cooperative, No Acute Distress HEENT: Pupils Equal, Pupils Reactive, Mucous Membr. Moist/[place]ath Neck: Supple Lungs: Clear to Auscultation, Normal Respiratory Effort Cardiovascular: Regular Rate, Regular Rhythm GI/Abdominal Exam: Normal Bowel Sounds, Soft, Non-Tender, No Organomegaly, No Distention Extremities: Normal Inspection, Normal Range of Motion, Non-Tender, No Pedal Edema, Normal Capillary Refill Skin: Warm, Dry, Intact Neurological: No New Focal Deficit Psy/Mental Status: Alert, Normal Affect, Normal Mood - Problem List & Annotations (1) (spontaneous vaginal delivery) SNOMED Code(s): 592928971 Code(s): O80 - ENCOUNTER FOR FULL-TERM UNCOMPLICATED DELIVERY Status: Acute Priority: High Current Visit: Yes (2) History of inadequate care SNOMED Code(s): 576150079 Code(s): O09.30 - SUPRVSN OF PREG W INSUFFICIENT ANTENAT CARE, UNSP TRIMESTER Status: Acute Priority: High Current Visit: Yes - Problem List Review Problem List Initiated/Reviewed/Updated: Yes - Plan Plan:: Plan to continue inpatient course. Hemodynamically stable, afebrile. Hemoglobin 10.6, stable, F/U as indicated. Continue PO analgesia as ordered. Continue bottle feeding, eating, voiding, ambulating independently. Plan to D/C in am pending labs. Dr. Hubbard notified and agreeable with POC.
[2020-11-12] MEDS: Labetalol 100 MG Tab PO SCH (09:31)
[2020-11-12 12:07] LABS: C.TRACHOMATIS BY TMA Negative (Negative); N.GONORRHOEAE BY TMA Negative (Negative)
== END 2020-11-12 21:30 | disposition home or self-care (01) | DRG 805 ==
LOC: MW.OB 20:14 → OBSVTOIN 11-11 09:01 → MW.OB 11-11 13:29
PROVIDERS: ADMIT Obstetrics & Gynecology Obstetrics; ATTEND Obstetrics & Gynecology Obstetrics
PROC: 10E0XZZ Delivery of Products of Conception, External Approach (ICD-10-PCS; principal; 2020-11-11)
PROC: 3E033VJ Introduction of Other Hormone into Peripheral Vein, Percutaneous Approach (ICD-10-PCS; 2020-11-11)
PROC: 3E0R3BZ Introduction of Anesthetic Agent into Spinal Canal, Percutaneous Approach (ICD-10-PCS; 2020-11-11)
DX: O98.52 Other viral diseases complicating childbirth (principal); U07.1 COVID-19; Z37.0 Single live birth; Z3A.38 38 weeks gestation of pregnancy
CPT/HCPCS: 01967; 36415; 51702; 59025; 59409; 80305-QW; 85014; 85018; 85027; 86592; 86762; 86803; 86850; 86900; 86901; 87340; 87389; 87491; 87591; A9270-GY; J2590; J7120; U0002